=== PATIENT | female | born 1960 | race Two or more races ===

== ENCOUNTER 2024-04-28 06:34 | Day surgery (SDC) | payer OTHER, SELFPAY ==
[2024-04-28] VITALS (11 sets, daily range): BP systolic 120–158; BP diastolic 67–83; BMI 28.7
--- NOTE | 2024-04-28 09:38 | HPS.HSE ---
Family Physician
-
Family Physician: NOT KNOW UNKNOWN - PT DOES
Chief Complaint
-
Endometrial cancer
History of Present Illness
This�is�a�64�year�old�[place]�woman�referred�to�me�by�Dr.Ivanaov.�She�was�menopausal�and�amenorrheic�since�age�50, had�bleeding�while�in�[place]�this�summer.�Had�a�polyp�removed�which�was�concerning�for�cancer.�she�[place]
and�saw�her�mineral technologist.�US�showed�thickened�endometrial�stripe.�Patient�underwent�endometrial�biopsy�which�showed�scant�fragments�of
atypical�glandular�proliferation.Formal�dilation�and�curettage�was�performed�[place]�2.�Pathology�shows�invasive�welldifferentiated�endometrioid�adenocarcinoma,�in�a�background�of�atypical�complex�hyperplasia,�this�was�seen�both�in�the�curettag
e as�well�as�polyps. Previous�Treatment�Events No�previous�treatment�history�has�been�entered�for�this�patient. Current�Treatment Regimens:�There�are�no�active�flowsheets�for�this�patient. Allergies No�Known�Drug�Allergies
Medical History
Past Medical History
Past Medical History: Reports None
Past Surgical History: Reports None
Social History
Tobacco: Non-smoker
Alcohol: None
Drug: None
Family History
Family History: Not pertinent
Allergies / Home Medications
Allergies reflects when Allergies were last updated in [facility].
Home Medications with original date entered in [facility]
Allergy/Medication List:
NKDA
Review of Systems
-
A 12 point ROS was completed and negative except as noted: Yes
Constitutional: Reports No Symptoms
EENT: Reports No Symptoms
Respiratory: Reports No Symptoms
Cardiac: Reports No Symptoms
Abdomen/GI: Reports No Symptoms
Musculoskeletal: Reports No Symptoms
Skin: Reports No Symptoms
Neurological: Reports No Symptoms
Endocrine: Reports No Symptoms
Physical Exam
Vital Signs
Physical�Exam Pelvic�Examination: External�normal�labia,�urethra,�anus.� Vagina:�Normal�mucosa.� Cervix:�normal�appearance,�no�discharge. Uterus:�normal�size.� Adnexa:�No�pelvic�mass. RVE:�no�masses�or�nodularity
General:�Well�developed,�well�nourished�patient.�In�no�acute�distress. Head:�Atraumatic�and�normocephalic. Neck:�No�thyromegaly.�No�cervical�lymphadenopathy. Lungs:�Clear�to�auscultation.�Good�air�movement�bilaterally.
Cardiac:�Regular�rate.�Regular�rhythm.�No�murmurs�appreciated. Right�Breast:�No�masses�or�dimpling.�No�nipple�discharge. Left�Breast:�No�masses�or�dimpling.�No�nipple�discharge. Abdomen:�Abdomen�is�soft.�Non�tender�to�palpation.�Non�distended.
Extremities:�No�edema. Hematologic/Lymphatic:�No�palpable�lymphadenopathy. Musculoskeletal:�Normal�range�of�motion.�Strength�and�Tone�are�normal. Skin:Non�jaundiced.�No�petechia.�No�purpura.
Neurologic:�Speech�is�fluent.�Normal�gait�and�station.�Cranial�nerves�intact.
Physical Exam
General: Well Developed, Well Nourished and No Apparent Distress
Respiratory: Clear, Non Labored Respirations and Clear to Percussion
Cardiac: S1/S2 and Regular Rhythm
GI: Soft, Non Tender and Normal Bowel Sounds
Impression/Plan
-
IMPRESSION:
I�spoke�with�the�patient�and�daughter�in�law�in�office�and�based�on�the�current�endometrial�cancer.�I�explained�to�her�the�nature�of
development�of�this�type�of�pathology�which�typically�presents�with�postmenopausal�discharge�and�bleeding.�Risk�factors associated�with�endometrial�cancer�including�age,�obesity,�hypertension�and�diabetes�were�discussed.�
My�recommendation�is�for�surgical�treatment�to�include�total�hysterectomy�bilateral�salpingooophorectomy,�injection�of�cervix�with ICG�dye�identification�and�mapping�of�sentinel�lymph�nodes�and�excision�of�these�nodes�for�definitive�management.�
Preoperative�CT�chest�abdomen�and�pelvis�will�be�obtained�assuming�there�is�diagnosis�of�endometrial�cancer� labs�will�be�obtained�including�CA�125 she�needs�to�get�medical�clearance�from�her�PCP
Her�surgery�should�be�ideally�done�using�a�robotic�platform,�Robotic�TLH�BSO,�staging,�Surgery�will�be�coordinated�in�next�2�4 weeks�Risks�of�surgery�including�infection�bleeding�injury�to�adjacent�organs,�DVT�pulmonary�embolism�and�cardiovascular
complications�were�discussed�and�reviewed.� She�understands�that�she�will�see�me�2�weeks�postoperatively�in�order�to�go�over�the�pathology�results�and�discuss�whether�there is�any�need�for�adjuvant�treatments.�P
PLAN:
Robotic TLH BSO, sentinel LN excision
[2024-04-28] MEDS: HEPARIN 5000 UNITS SC (11:37)
[2024-04-28] MEDS: NORMOSOL-R/PLASMALYTE-A 1000 IV (11:38)
--- NOTE | 2024-04-28 14:55 | OR.RPT ---
Operative Report
Operative Report
Date of procedure: April 28, 2024
Preoperative diagnosis: Grade 1 endometrioid adenocarcinoma of uterus
Postop diagnosis: Same
Procedure:
Robotic assisted total laparoscopic hysterectomy, bilateral salpingo-oophorectomy
Injection of cervix with ICG dye for mapping and identification of sentinel lymph nodes, bilateral
Robotic assisted bilateral pelvic sentinel lymphadenectomy
Pelvic washings
TAP block
Surgeon: Lloyd Atwood MD
Assist: Julio Park PA-C
Anesthesia: General Endotracheal intubation
Estimated blood loss 50 cc
Complication: None
Procedure in detail: This patient was brought to the operating room for definitive management of low-grade endometrial cancer. Upon arrival to the operating room she was placed in supine position general anesthesia was administered, she was
intubated without any difficulty. Appropriate IV lines were placed, arms were wrapped in foam and placed along the patient's sides. Her legs were placed in dorsal lithotomy using yellowfin stirrups. She was prepped and draped on the abdomen
perineum and vagina. Timeout procedure was completed and she received the appropriate antibiotics. Roche catheter was placed under sterile conditions in the bladder. The cervix was grasped with single-tooth tenaculum and injected with ICG dye 1
cc at 5 mm and 1 cc at 10 mm stations at 3:00 same procedure was repeated at 9:00. The uterine canal was dilated and uterine manipulator financial writer type with 3.0 DALILA ring was placed in the uterine cavity and vaginal cuff occluder was insufflated.
Attention was turned abdominally Veress needle was inserted in the umbilicus into the peritoneal cavity and pneumoperitoneum was accomplished with CO2 gas up to pressure of 15 mmHg. 8 mm robotic port was introduced at 25 cm cephalad to symphysis
pubis into the peritoneal cavity 8 mm X Xi robotic ports were placed under direct visualization in right upper quadrant left upper quadrant and right and left lateral abdomen. Upper abdomen including liver spleen stomach diaphragms and all
peritoneal surfaces and omentum was within normal limits. Tap block was performed by injecting ropivacaine at 2 fingerbreadths below costal margin right and left sides mid abdomen right and left sides as well as lower abdomen right and left sides.
Once this was completed the patient was placed in 28 degree Trendelenburg robotic system was docked uterus and cervix bilateral tubes and ovaries were visualized, adhesions of the sigmoid colon to the left pelvis was taken down sharply right and
left round ligaments were sealed and divided anterior and posterior leaves of the broad ligament were dissected open paracervical and pararectal spaces were developed both infundibulopelvic ligaments were identified and isolated and the course of
ureter was identified and the retroperitoneal space an avascular window was developed between IP ligaments and ureter. Both IP ligaments were sealed and divided tubes and ovaries were left attached to the uterus bladder flap was sharply developed
and advanced below the cervicovaginal junction. Using near infrared system we identified the lymphatic channels which followed directly into the obturator fossa bilaterally these lymph nodes along the anterior aspect of the obturator nerve were
removed and submitted to pathology as right and left obturator sentinel lymph nodes. The remainder of the lymph nodes were unremarkable. Uterine arteries were skeletonized they were sealed 3 times and divided circumferential incision was made
around the DALILA ring and the specimen was detached and retrieved through the vagina. Vaginal apices were supported with [id number] sutures of 0 Vicryl incorporating uterosacral ligament for support and then V-Loc suture was used to close the
vagina in 2 layers. The pelvis was irrigated copiously and there was excellent hemostasis. We visualized the appendix which was normal and this was left in situ. We irrigated the pelvis and proceeded to remove all instruments and undocked the
robotic system pneumoperitoneum was released. All port incisions were closed with 4-0 Monocryl suture in a subcuticular fashion. The Roche catheter was removed vagina was inspected and there was no lacerations. Patient was awakened extubated and
returned back to recovery room stable awake and extubated condition. Counts of laps instruments and needle was correct x 2. I was present and scrubbed for entire procedure as dictated above.
[2024-04-28] MEDS: DILAUDID 0.5 MG IV (15:57)
[2024-04-28] MEDS: ROXICODONE 5 MG PO (17:26)
== END 2024-04-28 18:51 | disposition home or self-care (01) ==
LOC: SDS 06:34
PROVIDERS: ATTENDING PHYSICIAN Obstetrics & Gynecology Gynecologic Oncology
DX: C54.1 Malignant neoplasm of endometrium (principal)
CPT/HCPCS: 58571; 38570; 38900; 88307; 88309; 86850; 86900; 86901; 88112; 88342; 88360